=== PATIENT | female | born 1955 | race Caucasian/White ===

== ENCOUNTER 2022-12-27 06:53 | Day surgery (SDC) | payer MEDICARE ==
[2022-12-27] MEDS ORDERED: fentaNYL 50 MCG/ML SDV ONE (07:24)
[2022-12-27] MEDS ORDERED: Propofol 200 MG/20 ML SDV ONE (07:24)
[2022-12-27] MEDS ORDERED: Sodium Chloride 0.9% 1,000 ML IV SCH (07:30)
[2022-12-27 10:13] VITALS: BP 111/68; PULSE 65
== END 2022-12-27 10:00 | disposition home or self-care (01) ==
LOC: JP.SDS 06:53
PROVIDERS: ATTEND Surgery
DX: K29.50 Unspecified chronic gastritis without bleeding (principal); K21.9 Gastro-esophageal reflux disease without esophagitis; E78.00 Pure hypercholesterolemia, unspecified; Z79.899 Other long term (current) drug therapy
CPT/HCPCS: 43239; 88305; J2704; J3010; J7030

== ENCOUNTER 2024-02-04 08:56 | Day surgery (SDC) | payer MEDICARE ==
[2024-02-04] MEDS: Acetaminophen 500 MG Tab PO ONE (09:14)
[2024-02-04] MEDS: Lactated Ringers 1,000 ML IV SCH (09:49)
[2024-02-04] MEDS: ceFAZolin 2 GM in Premix Bag 1 BAG IV ONE (11:10)
[2024-02-04] MEDS ORDERED: fentaNYL 100 MCG/2 ML SDV ONE (11:13)
[2024-02-04] MEDS ORDERED: Midazolam 1 MG/ML 2 ML SDV ONE (11:13)
[2024-02-04] MEDS ORDERED: Propofol 200 MG/20 ML SDV ONE ×3 (11:13→11:46)
[2024-02-04] MEDS: Bupivacaine 0.5% 50 ML MDV ONE (11:40)
[2024-02-04] MEDS: Lidocaine 1% with EPINEPHrine 1:100,000 50 ML MDV ONE (11:40)
[2024-02-04] MEDS: Bacitracin Oint 1 GM U/D Packet ONE (11:55)
[2024-02-04] MEDS: Acetaminophen/HYDROcodone 325-5 MG Tab PO ONE (13:02)
[2024-02-04 14:40] VITALS: BP 120/77; PULSE 60
== END 2024-02-04 13:10 | disposition home or self-care (01) ==
LOC: JP.SDS 08:56
PROVIDERS: ATTEND Student in an Organized Health Care Education/Training Program
DX: D17.24 Benign lipomatous neoplasm of skin and subcutaneous tissue of left leg (principal); E78.5 Hyperlipidemia, unspecified; Z79.899 Other long term (current) drug therapy
CPT/HCPCS: 27337; 88307; A9270; J0665; J0690; J2250; J2704; J3010; J7120

== ENCOUNTER 2024-07-02 05:59 | Day surgery (SDC) | payer MEDICARE ==
[2024-07-02 06:35] LABS: HEMATOCRIT 41.2 % (34.3-46.0); HEMOGLOBIN 14.3 g/dL (11.2-15.5); MEAN CORPUSCULAR HEMOGLOBIN 30.5 pg (31.6-35.5); MEAN CORPUSCULAR HGB CONC 34.7 g/dL (31.6-35.5); MEAN CORPUSCULAR VOLUME 87.8 fL (81.4-99.0); RED BLOOD CELL COUNT 4.69 M/uL (3.77-5.24); WHITE BLOOD CELL COUNT,WBC 4.5 K/uL (3.2-11.0)
[2024-07-02 06:54] LABS: A/G RATIO 1.1 (1.2-2.2); ALANINE AMINOTRANSFERASE,ALT 22 U/L (12-78); ALBUMIN 3.9 g/dL (3.4-5.0); ALKALINE PHOSPHATASE 72 U/L (46-116); ASPARTATE AMNIOTRANSFERASE,AST 21 U/L (15-37); BILIRUBIN TOTAL 0.6 mg/dL (0.2-1.0); BLOOD UREA NITROGEN,BUN 16 mg/dL (7-18); CALCIUM 9.3 mg/dL (8.5-10.1); CARBON DIOXIDE,CO2 25 mmol/L (21-32); CHLORIDE,CL 101 mmol/L (100-108); CREATININE 0.7 mg/dL (0.6-1.0); EST CRCL DRUG DOSING (CG) 62.74 mL/min; ESTIMATED GFR 94 mL/min (>60); GLUCOSE RANDOM 104 mg/dL (74-106); POTASSIUM,K 3.9 mmol/L (3.6-5.2); PROTEIN TOTAL,TP 7.6 g/dL (6.4-8.2); SODIUM,NA 139 mmol/L (140-148)
[2024-07-02 06:55] LABS: ANION GAP 16.9 mmol/L (5.0-14.0)
[2024-07-02 07:05] LABS: INR 1.1
[2024-07-02] MEDS: Lactated Ringers 1,000 ML IV SCH (07:12)
[2024-07-02] MEDS: Nozin Nasal Sanitizer NASBOTH ONE (07:12)
[2024-07-02] MEDS ORDERED: fentaNYL 250 MCG/5 ML SDV ONE (07:18)
[2024-07-02] MEDS ORDERED: Propofol 200 MG/20 ML SDV ONE (07:18)
[2024-07-02] MEDS ORDERED: Ondansetron 4 MG/2 ML SDV ONE (07:19)
[2024-07-02] MEDS ORDERED: Dexamethasone 4 MG/ML SDV ONE (07:19)
[2024-07-02] MEDS: ceFAZolin 2 GM in Premix Bag 1 BAG IV ONE (08:00)
[2024-07-02] MEDS: Bupivacaine 0.5% 30 ML SDV ONE (08:38)
[2024-07-02] MEDS ORDERED: Lactated Ringers 1,000 ML ONE (09:23)
[2024-07-02] MEDS ORDERED: fentaNYL 100 MCG/2 ML SDV ONE (09:25)
[2024-07-02] MEDS: Acetaminophen/HYDROcodone 325-5 MG Tab PO ONE ×2 (10:50→10:59)
[2024-07-02] MEDS: Ketorolac 30 MG/ML SDV IVPUSH ONE (12:19)
[2024-07-02 13:07] VITALS: BP 116/74; PULSE 91
== END 2024-07-02 13:20 | disposition home or self-care (01) ==
LOC: JP.SDS 05:59
PROVIDERS: ATTEND Specialist
DX: S52.572A Other intraarticular fracture of lower end of left radius, initial encounter for closed fracture (principal); G56.02 Carpal tunnel syndrome, left upper limb; J45.909 Unspecified asthma, uncomplicated; E78.5 Hyperlipidemia, unspecified
CPT/HCPCS: 01830; 25608; 36415; 64721; 76000; 80053; 85027; 85610; 93005; 93010; A9270; C1713; J0665; J0690; J1100; J1885; J2405; J2704; J3010; J7120

== ENCOUNTER 2024-08-16 07:37 | Day surgery (SDC) | payer MEDICARE ==
[2024-08-16] MEDS ORDERED: fentaNYL 100 MCG/2 ML SDV ONE (07:38)
[2024-08-16] MEDS ORDERED: Propofol 200 MG/20 ML SDV ONE ×2 (07:38→09:11)
[2024-08-16] MEDS ORDERED: Midazolam 1 MG/ML 2 ML SDV ONE (07:39)
[2024-08-16] MEDS ORDERED: Lidocaine 0.5% 50 ML SDV ONE (07:39)
[2024-08-16 07:57] LABS: HEMOGLOBIN 14.1 g/dL (11.2-15.5); MEAN CORPUSCULAR HEMOGLOBIN 30.9 pg (31.6-35.5); MEAN CORPUSCULAR HGB CONC 34.4 g/dL (31.6-35.5); MEAN CORPUSCULAR VOLUME 89.9 fL (81.4-99.0); RED BLOOD CELL COUNT 4.56 M/uL (3.77-5.24); WHITE BLOOD CELL COUNT,WBC 4.9 K/uL (3.2-11.0)
[2024-08-16 08:13] LABS: ANION GAP 9.2 mmol/L (5.0-14.0); CALCIUM 10.2 mg/dL (8.5-10.1); CREATININE 0.8 mg/dL (0.6-1.0); EST CRCL DRUG DOSING (CG) 54.9 mL/min
[2024-08-16] MEDS: Nozin Nasal Sanitizer NASBOTH ONE (08:24)
[2024-08-16] MEDS: Lactated Ringers 1,000 ML IV SCH (08:27)
[2024-08-16] MEDS: ceFAZolin 1 GM in Premix Bag 1 BAG IV ONE (08:45)
[2024-08-16] MEDS: Lidocaine 1% 50 ML MDV ONE (09:22)
[2024-08-16] MEDS: Bupivacaine 0.5% 30 ML SDV ONE (09:22)
[2024-08-16] MEDS: Morphine 2 MG/ML SYRINGE IVPUSH ONE (10:34)
[2024-08-16] MEDS: Acetaminophen/HYDROcodone 325-5 MG Tab PO PRN (11:22)
[2024-08-16] MEDS: Ketorolac 30 MG/ML SDV IVPUSH ONE (11:40)
[2024-08-16] MEDS: Acetaminophen/HYDROcodone 325-5 MG Tab PO ONE (12:24)
[2024-08-16 13:07] VITALS: BP 120/71; PULSE 73
== END 2024-08-16 13:16 | disposition home or self-care (01) ==
LOC: JP.SDS 07:37
PROVIDERS: ATTEND Specialist
DX: T84.84XA Pain due to internal orthopedic prosthetic devices, implants and grafts, initial encounter (principal); G56.02 Carpal tunnel syndrome, left upper limb; L90.5 Scar conditions and fibrosis of skin
CPT/HCPCS: 01830; 20680; 26440; 36415; 64721; 76000; 80048; 85027; A9270; J0665; J0689; J1885; J2001; J2250; J2270; J2704; J3010; J7120